=== PATIENT | male | born 1975 | race Two or more races ===

== ENCOUNTER 2021-09-24 09:32 | Inpatient (IN) | payer OTHER ==
[2021-09-24 10:51] VITALS: BMI 20.5
[2021-09-24] MEDS ORDERED: MAG HYDROX/AL HYDROX/SIMETH 30 ML UNIT-DOSE CUP PO PRN (11:45)
[2021-09-24] MEDS ORDERED: MAGNESIUM HYDROX 2400MG/30ML ORAL SUSPENSION 30 ML CUP PO PRN (11:45)
[2021-09-24] MEDS ORDERED: methaDONE HCL 10 MG TABLET (FOR DETOX USE ONLY) PO ONE ×2 (11:45→18:49)
[2021-09-24] MEDS ORDERED: BENZOCAINE/MENTHOL (CHLORASEPTIC ) LOZENGE MM PRN (11:45)
[2021-09-24] MEDS ORDERED: IBUPROFEN 400 MG TABLET (FP) PO PRN (11:45)
[2021-09-24] MEDS ORDERED: chlordiazePOXIDE HCL 25 MG CAPSULE PO PRN (11:45)
[2021-09-24] MEDS ORDERED: LOPERAMIDE HCL 2 MG CAPSULE PO PRN (11:45)
[2021-09-24] MEDS ORDERED: IBUPROFEN 600 MG TABLET (FP) PO PRN (11:45)
[2021-09-24] MEDS ORDERED: MAGNESIUM CITRATE 300 ML BOTTLE PO PRN (11:45)
[2021-09-24] MEDS ORDERED: DICYCLOMINE HCL 10 MG CAPSULE PO PRN (11:45)
[2021-09-24] MEDS ORDERED: ONDANSETRON *ODT* 4 MG TABLET SL PRN (11:45)
[2021-09-24] MEDS ORDERED: ACETAMINOPHEN 325 MG TABLET (FP) PO PRN ×2 (11:45)
[2021-09-24] MEDS ORDERED: BISMUTH SUBSALICYLATE 262 MG/15 ML BTL PO PRN (11:45)
[2021-09-24] MEDS ORDERED: NICOTINE 10 MG CARTRIDGE (INHALER) IH PRN (11:45)
[2021-09-24] MEDS: cloNIDine HCL 0.1 MG TABLET PO PRN ×2 (12:19→22:56)
[2021-09-24] MEDS: PRENATAL VITAMINS W/ FOLIC ACID TABLET (FP) PO SCH (12:23)
[2021-09-24] MEDS: NICOTINE 21 MG/24 HOURS TOPICAL PATCH TD SCH (12:23)
[2021-09-24] MEDS: hydrOXYzine PAMOATE 25 MG CAPSULE (FP) PO SCH ×2 (14:12→18:13)
[2021-09-24 16:37] LABS: HEMOGLOBIN 11.3 GM/dL (11.7-16.9); MCH 27.9 pg (25.7-33.7); MCHC 33.2 g/dl (32.0-35.9); MEAN CELL VOLUME 84.1 fl (80-96); MEAN PLT VOLUME 8.1 fl (7.5-11.1); PLATELET COUNT 275 10^3/uL (134-434); RBC 4.05 M/mm3 (4.00-5.60); RDW 16.1 % (11.9-15.9); WHITE BLOOD COUNT 5.8 K/mm3 (4.0-10.0)
[2021-09-24 16:45] LABS: ALBUMIN 3.2 g/dl (3.4-5.0)
[2021-09-24 16:46] LABS: CALCIUM 8.3 mg/dL (8.5-10.1)
[2021-09-24 16:47] LABS: BLOOD UREA NITROGEN 13.8 mg/dL (7-18)
[2021-09-24 16:49] LABS: CREATININE 0.7 mg/dL (0.55-1.3)
[2021-09-24 16:51] LABS: BILIRUBIN,TOTAL 0.3 mg/dL (0.2-1); TOT PROT 6.1 g/dl (6.4-8.2)
[2021-09-24] MEDS: chlordiazePOXIDE HCL 25 MG CAPSULE PO SCH ×2 (18:13→22:56)
[2021-09-24] MEDS: THIAMINE HCL 100 MG TABLET (FP) PO SCH (22:56)
[2021-09-24] MEDS: MELATONIN 5 MG TABLETS PO SCH (22:56)
[2021-09-24] MEDS: hydrOXYzine PAMOATE 25 MG CAPSULE (FP) PO PRN (22:56)
[2021-09-24] MEDS: METHOCARBAMOL 500 MG TABLET PO PRN (22:56)
[2021-09-25] MEDS: chlordiazePOXIDE HCL 25 MG CAPSULE PO SCH ×4 (07:07→22:21)
[2021-09-25] MEDS: METHOCARBAMOL 500 MG TABLET PO PRN ×2 (07:08→22:21)
[2021-09-25] MEDS: cloNIDine HCL 0.1 MG TABLET PO PRN ×2 (07:08→22:22)
[2021-09-25] MEDS: hydrOXYzine PAMOATE 25 MG CAPSULE (FP) PO PRN (07:08)
[2021-09-25] MEDS: PRENATAL VITAMINS W/ FOLIC ACID TABLET (FP) PO SCH (10:40)
[2021-09-25] MEDS: NICOTINE 21 MG/24 HOURS TOPICAL PATCH TD SCH (10:40)
[2021-09-25] MEDS: MELATONIN 5 MG TABLETS PO SCH (22:21)
[2021-09-25] MEDS: QUEtiapine FUMARATE 200 MG TABLET PO SCH (22:21)
[2021-09-25] MEDS: THIAMINE HCL 100 MG TABLET (FP) PO SCH (22:22)
[2021-09-25] MEDS ORDERED: cloNIDine HCL 0.1 MG TABLET PO ONE (23:20)
[2021-09-26] MEDS: chlordiazePOXIDE HCL 25 MG CAPSULE PO SCH ×5 (05:07→23:15)
[2021-09-26] MEDS: cloNIDine HCL 0.1 MG TABLET PO PRN ×2 (05:08→23:04)
[2021-09-26] MEDS: hydrOXYzine PAMOATE 25 MG CAPSULE (FP) PO PRN ×2 (05:08→23:04)
[2021-09-26] MEDS: METHOCARBAMOL 500 MG TABLET PO PRN ×2 (05:09→23:04)
[2021-09-26] MEDS ORDERED: methaDONE HCL 10 MG TABLET (FOR DETOX USE ONLY) PO ONE ×2 (10:00)
[2021-09-26] MEDS ORDERED: cloNIDine HCL 0.1 MG TABLET PO ONE (10:05)
[2021-09-26] MEDS: NICOTINE 21 MG/24 HOURS TOPICAL PATCH TD SCH (10:33)
[2021-09-26] MEDS: PRENATAL VITAMINS W/ FOLIC ACID TABLET (FP) PO SCH (10:33)
[2021-09-26] MEDS: QUEtiapine FUMARATE 100 MG TABLET (FP) PO SCH (10:34)
[2021-09-26] MEDS: QUEtiapine FUMARATE 200 MG TABLET PO SCH (21:48)
[2021-09-26] MEDS: MELATONIN 5 MG TABLETS PO SCH (23:04)
[2021-09-26] MEDS: THIAMINE HCL 100 MG TABLET (FP) PO SCH (23:25)
[2021-09-27] MEDS ORDERED: chlordiazePOXIDE HCL 10 MG CAPSULE PO PRN
[2021-09-27 00:27] VITALS: RESP 18
[2021-09-27] MEDS: chlordiazePOXIDE HCL 10 MG CAPSULE PO SCH ×2 (07:09→10:23)
[2021-09-27 08:58] VITALS: BP 146/114; PULSE 90; TEMP 97.2
[2021-09-27] MEDS: hydrOXYzine PAMOATE 25 MG CAPSULE (FP) PO PRN (09:00)
[2021-09-27] MEDS: METHOCARBAMOL 500 MG TABLET PO PRN (09:00)
[2021-09-27] MEDS: QUEtiapine FUMARATE 100 MG TABLET (FP) PO SCH (09:00)
[2021-09-27] MEDS: NICOTINE 21 MG/24 HOURS TOPICAL PATCH TD SCH (09:01)
[2021-09-27] MEDS: PRENATAL VITAMINS W/ FOLIC ACID TABLET (FP) PO SCH (09:03)
[2021-09-27] MEDS ORDERED: cloNIDine HCL 0.1 MG TABLET PO ONE (09:45)
[2021-09-28] MEDS ORDERED: chlordiazePOXIDE HCL 10 MG CAPSULE PO SCH (05:00)
[2021-09-28] MEDS ORDERED: methaDONE HCL 10 MG TABLET (FOR DETOX USE ONLY) PO ONE (10:00)
[2021-09-29] MEDS ORDERED: chlordiazePOXIDE HCL 10 MG CAPSULE PO ONE (05:00)
== END 2021-09-27 10:58 | disposition left against medical advice (07) | DRG 770 ==
LOC: YASAS 09:32 → Y3N 11:32
PROVIDERS: ADMIT Allergy & Immunology; ATTEND Surgery
PROC: HZ2ZZZZ Detoxification Services for Substance Abuse Treatment (ICD-10-PCS; principal; 2021-09-24)
DX: F11.23 Opioid dependence with withdrawal (principal); F10.230 Alcohol dependence with withdrawal, uncomplicated; F14.20 Cocaine dependence, uncomplicated; F17.210 Nicotine dependence, cigarettes, uncomplicated; F20.0 Paranoid schizophrenia; I10 Essential (primary) hypertension; Z59.00 Homelessness unspecified; Z56.0 Unemployment, unspecified
CPT/HCPCS: 36415; 71046-TC-FY; 80053; 85027; 86780; 93005; 93010; C9803-CS; J0735; U0003; U0005

== ENCOUNTER 2022-01-15 10:33 | Inpatient (IN) | payer OTHER ==
[2022-01-15 11:55] VITALS: BMI 19.2
[2022-01-15] MEDS ORDERED: NALOXONE HCL (KLOXXADO) 8 MG SPRAY NS PRN (12:07)
[2022-01-15] MEDS ORDERED: NICOTINE 10 MG CARTRIDGE (INHALER) IH PRN (12:07)
[2022-01-15] MEDS ORDERED: MAGNESIUM HYDROX 2400MG/30ML ORAL SUSPENSION 30 ML CUP PO PRN (12:07)
[2022-01-15] MEDS ORDERED: ACETAMINOPHEN 325 MG TABLET (FP) PO PRN ×2 (12:07)
[2022-01-15] MEDS ORDERED: IBUPROFEN 400 MG TABLET (FP) PO PRN (12:07)
[2022-01-15] MEDS ORDERED: BISMUTH SUBSALICYLATE 262 MG/15 ML BTL PO PRN (12:07)
[2022-01-15] MEDS ORDERED: diazePAM 5 MG TABLET PO PRN (12:07)
[2022-01-15] MEDS ORDERED: POLYETHYLENE GLYCOL (HEALTHYLAX) 3350 17 GM PACKET PO PRN (12:07)
[2022-01-15] MEDS ORDERED: BUPRENORPHINE HCL 150 MCG, BUPRENORPHINE HCL 75 MCG BC ONE (12:07)
[2022-01-15] MEDS ORDERED: MAG HYDROX/AL HYDROX/SIMETH 30 ML UNIT-DOSE CUP PO PRN (12:07)
[2022-01-15] MEDS ORDERED: LOPERAMIDE HCL 2 MG CAPSULE PO PRN (12:07)
[2022-01-15] MEDS ORDERED: BUPRENORPHINE HCL 150 MCG, BUPRENORPHINE HCL 75 MCG BC PRN (12:07)
[2022-01-15] MEDS ORDERED: chlordiazePOXIDE HCL 25 MG CAPSULE PO PRN (12:07)
[2022-01-15] MEDS ORDERED: BENZOCAINE/MENTHOL (CHLORASEPTIC ) LOZENGE MM PRN (12:07)
[2022-01-15] MEDS ORDERED: DICYCLOMINE HCL 10 MG CAPSULE PO PRN (12:07)
[2022-01-15] MEDS ORDERED: cloNIDine HCL 0.1 MG TABLET PO ONE (12:07)
[2022-01-15] MEDS ORDERED: BUPRENORPHINE HCL 150 MCG FILM BC ONE (14:29)
[2022-01-15] MEDS ORDERED: BUPRENORPHINE HCL 75 MCG FILM BC ONE (14:30)
[2022-01-15] MEDS ORDERED: cloNIDine HCL 0.1 MG TABLET ONE (14:31)
[2022-01-15] MEDS: PRENATAL VITAMINS W/ FOLIC ACID TABLET (FP) PO SCH (15:27)
[2022-01-15] MEDS: TOLNAFTATE 1% CREAM 15 GM TUBE TP SCH ×2 (15:27→23:31)
[2022-01-15] MEDS: chlordiazePOXIDE HCL 25 MG CAPSULE PO SCH ×2 (17:51→23:30)
[2022-01-15] MEDS: cloNIDine HCL 0.1 MG TABLET PO PRN (23:30)
[2022-01-15] MEDS: METHOCARBAMOL 500 MG TABLET PO PRN (23:30)
[2022-01-15] MEDS: THIAMINE HCL 100 MG TABLET (FP) PO SCH (23:31)
[2022-01-15] MEDS: MELATONIN 5 MG TABLETS PO SCH (23:31)
[2022-01-16] MEDS ORDERED: BUPRENORPHINE HCL 150 MCG, BUPRENORPHINE HCL 75 MCG BC PRN
[2022-01-16] MEDS ORDERED: BUPRENORPHINE HCL 150 MCG, BUPRENORPHINE HCL 75 MCG BC SCH (06:00)
[2022-01-16] MEDS: chlordiazePOXIDE HCL 25 MG CAPSULE PO SCH ×3 (06:03→17:53)
[2022-01-16] MEDS: cloNIDine HCL 0.1 MG TABLET PO PRN ×4 (06:05→21:43)
[2022-01-16] MEDS: METHOCARBAMOL 500 MG TABLET PO PRN ×3 (06:06→21:40)
[2022-01-16 10:31] LABS: HEMATOCRIT 37.6 % (35.4-49); HEMOGLOBIN 12.1 GM/dL (11.7-16.9); MCH 28.2 pg (25.7-33.7); MCHC 32.1 g/dl (32.0-35.9); MEAN CELL VOLUME 87.9 fl (80-96); MEAN PLT VOLUME 7.8 fl (7.5-11.1); PLATELET COUNT 386 10^3/uL (134-434); RBC 4.28 M/mm3 (4.00-5.60); RDW 14.5 % (11.9-15.9); WHITE BLOOD COUNT 5.4 K/mm3 (4.0-10.0)
[2022-01-16 11:10] LABS: ALBUMIN 3.3 g/dl (3.4-5.0); BLOOD UREA NITROGEN 16.2 mg/dL (7-18)
[2022-01-16 11:13] LABS: CREATININE 0.7 mg/dL (0.55-1.3)
[2022-01-16 11:15] LABS: BILIRUBIN,TOTAL 0.6 mg/dL (0.2-1); TOT PROT 6.5 g/dl (6.4-8.2)
[2022-01-16] MEDS: TOLNAFTATE 1% CREAM 15 GM TUBE TP SCH ×2 (11:15→21:43)
[2022-01-16] MEDS: PRENATAL VITAMINS W/ FOLIC ACID TABLET (FP) PO SCH (11:16)
[2022-01-16] MEDS ORDERED: cloNIDine HCL 0.1 MG TABLET PO ONE (13:02)
[2022-01-16] MEDS: ONDANSETRON *ODT* 4 MG TABLET SL PRN (13:26)
[2022-01-16] MEDS ORDERED: TRIMETHOBENZAMIDE HCL 200MG/2ML INJ IM PRN (15:03)
[2022-01-16] MEDS: IBUPROFEN 600 MG TABLET (FP) PO PRN ×2 (15:26→21:41)
[2022-01-16] MEDS: amLODIPine BESYLATE 5 MG TABLET (FP) PO SCH (15:51)
[2022-01-16] MEDS ORDERED: methaDONE HCL 10 MG TABLET (FOR DETOX USE ONLY) PO ONE (17:29)
[2022-01-16] MEDS: LACTULOSE 20 GM/30 ML UDC (FOR ORAL USE ONLY) PO SCH ×2 (17:54→21:45)
[2022-01-16] MEDS: hydrOXYzine PAMOATE 25 MG CAPSULE (FP) PO PRN (21:40)
[2022-01-16] MEDS: THIAMINE HCL 100 MG TABLET (FP) PO SCH (21:40)
[2022-01-16] MEDS: MELATONIN 5 MG TABLETS PO SCH (21:44)
[2022-01-17] MEDS: chlordiazePOXIDE HCL 25 MG CAPSULE PO SCH ×4 (05:32→23:09)
[2022-01-17] MEDS: ONDANSETRON *ODT* 4 MG TABLET SL PRN (05:33)
[2022-01-17] MEDS: METHOCARBAMOL 500 MG TABLET PO PRN (05:33)
[2022-01-17] MEDS: hydrOXYzine PAMOATE 25 MG CAPSULE (FP) PO PRN (05:33)
[2022-01-17] MEDS: cloNIDine HCL 0.1 MG TABLET PO PRN (05:33)
[2022-01-17] MEDS: IBUPROFEN 600 MG TABLET (FP) PO PRN (05:33)
[2022-01-17] MEDS ORDERED: BUPRENORPHINE HCL 450 MCG FILM BC SCH (06:00)
[2022-01-17] MEDS: HYDROCHLOROTHIAZIDE 25 MG TABLET (FP) PO SCH (09:24)
[2022-01-17] MEDS: amLODIPine BESYLATE 5 MG TABLET (FP) PO SCH (09:24)
[2022-01-17] MEDS: PRENATAL VITAMINS W/ FOLIC ACID TABLET (FP) PO SCH (09:24)
[2022-01-17] MEDS: TOLNAFTATE 1% CREAM 15 GM TUBE TP SCH ×2 (10:51→23:09)
[2022-01-17] MEDS: LACTULOSE 20 GM/30 ML UDC (FOR ORAL USE ONLY) PO SCH ×4 (10:51→21:32)
[2022-01-17] MEDS: MELATONIN 5 MG TABLETS PO SCH (21:06)
[2022-01-17] MEDS: THIAMINE HCL 100 MG TABLET (FP) PO SCH (21:06)
[2022-01-17] MEDS: QUEtiapine FUMARATE 200 MG TABLET PO SCH (21:06)
[2022-01-18] MEDS ORDERED: chlordiazePOXIDE HCL 10 MG CAPSULE PO PRN
[2022-01-18] MEDS: chlordiazePOXIDE HCL 10 MG CAPSULE PO SCH ×4 (05:51→22:43)
[2022-01-18] MEDS ORDERED: BUPRENORPHINE/NALOXONE 4 MG/1 MG FILM PACKET SL SCH (06:00)
[2022-01-18] MEDS: LACTULOSE 20 GM/30 ML UDC (FOR ORAL USE ONLY) PO SCH ×4 (09:29→23:47)
[2022-01-18] MEDS: HYDROCHLOROTHIAZIDE 25 MG TABLET (FP) PO SCH (09:30)
[2022-01-18] MEDS: amLODIPine BESYLATE 5 MG TABLET (FP) PO SCH (09:30)
[2022-01-18] MEDS: PRENATAL VITAMINS W/ FOLIC ACID TABLET (FP) PO SCH (09:31)
[2022-01-18] MEDS: TOLNAFTATE 1% CREAM 15 GM TUBE TP SCH ×2 (09:31→22:43)
[2022-01-18] MEDS ORDERED: methaDONE HCL 10 MG TABLET (FOR DETOX USE ONLY) PO ONE (10:00)
[2022-01-18] MEDS: METHOCARBAMOL 500 MG TABLET PO PRN (10:57)
[2022-01-18] MEDS: IBUPROFEN 600 MG TABLET (FP) PO PRN (13:13)
[2022-01-18] MEDS: cloNIDine HCL 0.1 MG TABLET PO PRN (13:19)
[2022-01-18] MEDS: hydrOXYzine PAMOATE 25 MG CAPSULE (FP) PO PRN (14:48)
[2022-01-18] MEDS: MELATONIN 5 MG TABLETS PO SCH (22:43)
[2022-01-18] MEDS: QUEtiapine FUMARATE 200 MG TABLET PO SCH (22:43)
[2022-01-18] MEDS: THIAMINE HCL 100 MG TABLET (FP) PO SCH (22:43)
[2022-01-19] MEDS ORDERED: BUPRENORPHINE/NALOXONE 8 MG/2 MG FILM PACKET SL ONE (06:00)
[2022-01-19] MEDS: chlordiazePOXIDE HCL 10 MG CAPSULE PO SCH ×2 (06:21→17:52)
[2022-01-19] MEDS: HYDROCHLOROTHIAZIDE 25 MG TABLET (FP) PO SCH (10:36)
[2022-01-19] MEDS: LACTULOSE 20 GM/30 ML UDC (FOR ORAL USE ONLY) PO SCH ×4 (10:36→22:01)
[2022-01-19] MEDS: amLODIPine BESYLATE 5 MG TABLET (FP) PO SCH (10:36)
[2022-01-19] MEDS: PRENATAL VITAMINS W/ FOLIC ACID TABLET (FP) PO SCH (10:36)
[2022-01-19] MEDS: TOLNAFTATE 1% CREAM 15 GM TUBE TP SCH ×2 (10:39→22:01)
[2022-01-19] MEDS: hydrOXYzine PAMOATE 25 MG CAPSULE (FP) PO PRN (17:52)
[2022-01-19] MEDS: MELATONIN 5 MG TABLETS PO SCH (22:01)
[2022-01-19] MEDS: QUEtiapine FUMARATE 200 MG TABLET PO SCH (22:01)
[2022-01-19] MEDS: THIAMINE HCL 100 MG TABLET (FP) PO SCH (22:01)
[2022-01-20] MEDS ORDERED: chlordiazePOXIDE HCL 10 MG CAPSULE PO ONE (05:00)
[2022-01-20 06:18] VITALS: RESP 18
[2022-01-20] MEDS ORDERED: methaDONE HCL 10 MG TABLET (FOR DETOX USE ONLY) PO ONE (10:00)
[2022-01-20] MEDS: HYDROCHLOROTHIAZIDE 25 MG TABLET (FP) PO SCH (10:53)
[2022-01-20] MEDS: amLODIPine BESYLATE 5 MG TABLET (FP) PO SCH (10:53)
[2022-01-20] MEDS: PRENATAL VITAMINS W/ FOLIC ACID TABLET (FP) PO SCH (10:54)
[2022-01-20] MEDS: LACTULOSE 20 GM/30 ML UDC (FOR ORAL USE ONLY) PO SCH ×4 (10:54→22:41)
[2022-01-20] MEDS: TOLNAFTATE 1% CREAM 15 GM TUBE TP SCH ×2 (10:54→22:40)
[2022-01-20] MEDS ORDERED: cloNIDine HCL 0.1 MG TABLET PO ONE (18:32)
[2022-01-20] MEDS: MELATONIN 5 MG TABLETS PO SCH (22:40)
[2022-01-20] MEDS: THIAMINE HCL 100 MG TABLET (FP) PO SCH (22:40)
[2022-01-20] MEDS: QUEtiapine FUMARATE 200 MG TABLET PO SCH (22:41)
[2022-01-20] MEDS: hydrOXYzine PAMOATE 25 MG CAPSULE (FP) PO PRN (22:41)
[2022-01-20] MEDS: METHOCARBAMOL 500 MG TABLET PO PRN (22:41)
[2022-01-21 08:55] VITALS: BP 143/95; PULSE 113; TEMP 98.7
[2022-01-21] MEDS: PRENATAL VITAMINS W/ FOLIC ACID TABLET (FP) PO SCH (10:45)
[2022-01-21] MEDS: amLODIPine BESYLATE 5 MG TABLET (FP) PO SCH (10:45)
[2022-01-21] MEDS: HYDROCHLOROTHIAZIDE 25 MG TABLET (FP) PO SCH (10:45)
[2022-01-21] MEDS: LACTULOSE 20 GM/30 ML UDC (FOR ORAL USE ONLY) PO SCH ×2 (10:45→13:20)
[2022-01-21] MEDS: TOLNAFTATE 1% CREAM 15 GM TUBE TP SCH (10:45)
== END 2022-01-21 15:21 | disposition other institution (70) | DRG 773 ==
LOC: YASAS 10:33 → Y3N 13:14
PROVIDERS: ADMIT Allergy & Immunology; ATTEND Surgery
PROC: HZ2ZZZZ Detoxification Services for Substance Abuse Treatment (ICD-10-PCS; principal; 2022-01-15)
DX: F11.23 Opioid dependence with withdrawal (principal); F10.230 Alcohol dependence with withdrawal, uncomplicated; F14.20 Cocaine dependence, uncomplicated; F20.0 Paranoid schizophrenia; F19.282 Other psychoactive substance dependence with psychoactive substance-induced sleep disorder; I10 Essential (primary) hypertension; R79.89 Other specified abnormal findings of blood chemistry; R76.11 Nonspecific reaction to tuberculin skin test without active tuberculosis; Z20.822 Contact with and (suspected) exposure to COVID-19; Z56.0 Unemployment, unspecified; Z59.00 Homelessness unspecified
CPT/HCPCS: 36415; 71046-TC-FY; 80053; 82140; 85027; 86780; C9803-CS; Q0162; U0003; U0005

== ENCOUNTER 2022-04-28 10:03 | Inpatient (IN) | payer OTHER ==
[2022-04-28 11:14] VITALS: BMI 19.8
[2022-04-28] MEDS ORDERED: BENZONATATE 200 MG CAPSULE PO PRN (11:34)
[2022-04-28] MEDS ORDERED: POLYETHYLENE GLYCOL (HEALTHYLAX) 3350 17 GM PACKET PO PRN (11:34)
[2022-04-28] MEDS ORDERED: ONDANSETRON *ODT* 4 MG TABLET SL PRN (11:34)
[2022-04-28] MEDS ORDERED: guaiFENesin 600 MG TABLET.ER (FP) PO PRN (11:34)
[2022-04-28] MEDS ORDERED: BISMUTH SUBSALICYLATE 524 MG/30 ML PO PRN (11:34)
[2022-04-28] MEDS ORDERED: BENZOCAINE/MENTHOL (CHLORASEPTIC ) LOZENGE MM PRN (11:34)
[2022-04-28] MEDS ORDERED: ACETAMINOPHEN 325 MG TABLET (FP) PO PRN (11:34)
[2022-04-28] MEDS ORDERED: DICYCLOMINE HCL 10 MG CAPSULE PO PRN (11:34)
[2022-04-28] MEDS ORDERED: IBUPROFEN 400 MG TABLET (FP) PO PRN (11:34)
[2022-04-28] MEDS ORDERED: NICOTINE 21 MG/24 HOURS TOPICAL PATCH TD PRN (11:34)
[2022-04-28] MEDS ORDERED: LOPERAMIDE HCL 2 MG CAPSULE PO PRN (11:34)
[2022-04-28] MEDS ORDERED: NICOTINE POLACRILEX 4 MG GUM BUC PRN (11:34)
[2022-04-28] MEDS ORDERED: IBUPROFEN 600 MG TABLET (FP) PO PRN (11:34)
[2022-04-28] MEDS ORDERED: MAGNESIUM HYDROX 2400MG/30ML ORAL SUSPENSION 30 ML CUP PO PRN (11:34)
[2022-04-28] MEDS ORDERED: NICOTINE 10 MG CARTRIDGE (INHALER) IH PRN (11:34)
[2022-04-28] MEDS ORDERED: MAG HYDROX/AL HYDROX/SIMETH 30 ML UNIT-DOSE CUP PO PRN (11:34)
[2022-04-28] MEDS ORDERED: NALOXONE HCL 0.4 MG/ML VIAL IM PRN (11:34)
[2022-04-28] MEDS ORDERED: NALOXONE HCL (KLOXXADO) 8 MG SPRAY NS PRN (11:34)
[2022-04-28] MEDS ORDERED: METHOCARBAMOL 500 MG TABLET PO PRN (11:34)
[2022-04-28] MEDS ORDERED: hydrOXYzine PAMOATE 25 MG CAPSULE (FP) PO PRN (11:34)
[2022-04-28 14:46] LABS: HEMATOCRIT 33.6 % (35.4-49); MCH 27.8 pg (25.7-33.7); MCHC 32.9 g/dl (32.0-35.9); MEAN CELL VOLUME 84.6 fl (80-96); MEAN PLT VOLUME 8.1 fl (7.5-11.1); PLATELET COUNT 333 10^3/uL (134-434); RBC 3.97 M/mm3 (4.00-5.60); RDW 15.5 % (11.9-15.9); WHITE BLOOD COUNT 6.2 K/mm3 (4.0-10.0)
[2022-04-28 15:01] LABS: ALBUMIN 3.4 g/dl (3.4-5.0); BLOOD UREA NITROGEN 21.4 mg/dL (7-18); CALCIUM 8.8 mg/dL (8.5-10.1)
[2022-04-28 15:04] LABS: CREATININE 0.9 mg/dL (0.55-1.3)
[2022-04-28 15:06] LABS: BILIRUBIN,TOTAL 1.2 mg/dL (0.2-1); TOT PROT 7.2 g/dl (6.4-8.2)
[2022-04-28] MEDS: MELATONIN 5 MG TABLETS PO SCH (22:47)
[2022-04-28] MEDS: THIAMINE HCL 100 MG TABLET (FP) PO SCH (22:47)
[2022-04-28] MEDS: cloNIDine HCL 0.1 MG TABLET PO PRN (22:48)
[2022-04-29] MEDS ORDERED: cloNIDine HCL 0.1 MG TABLET PO ONE (06:04)
[2022-04-29 06:08] VITALS: RESP 18
[2022-04-29] MEDS ORDERED: methaDONE HCL 10 MG TABLET (FOR DETOX USE ONLY) PO ONE (10:00)
[2022-04-29] MEDS: PRENATAL VITAMINS W/ FOLIC ACID TABLET (FP) PO SCH (10:40)
[2022-04-29] MEDS ORDERED: QUEtiapine FUMARATE 100 MG TABLET (FP) PO SCH (22:00)
[2022-04-29] MEDS: QUEtiapine FUMARATE 50 MG TABLET PO SCH (22:29)
[2022-04-29] MEDS: MELATONIN 5 MG TABLETS PO SCH (22:29)
[2022-04-29] MEDS: THIAMINE HCL 100 MG TABLET (FP) PO SCH (22:29)
[2022-04-30] MEDS: cloNIDine HCL 0.1 MG TABLET PO PRN (08:06)
[2022-04-30] MEDS: PRENATAL VITAMINS W/ FOLIC ACID TABLET (FP) PO SCH (09:29)
[2022-04-30] MEDS ORDERED: methaDONE HCL 10 MG TABLET (FOR DETOX USE ONLY) PO ONE (10:00)
[2022-04-30 10:13] VITALS: TEMP 97.1
[2022-04-30 11:39] VITALS: BP 161/99; PULSE 72
[2022-04-30] MEDS: amLODIPine BESYLATE 5 MG TABLET (FP) PO SCH ×2 (11:52→12:04)
[2022-05-01] MEDS: THIAMINE HCL 100 MG TABLET (FP) PO SCH (00:10)
[2022-05-01] MEDS: MELATONIN 5 MG TABLETS PO SCH (00:10)
[2022-05-01] MEDS: QUEtiapine FUMARATE 50 MG TABLET PO SCH (00:10)
[2022-05-01] MEDS ORDERED: methaDONE HCL 10 MG TABLET (FOR DETOX USE ONLY) PO ONE (10:00)
[2022-05-02] MEDS ORDERED: methaDONE HCL 10 MG TABLET (FOR DETOX USE ONLY) PO ONE (10:00)
== END 2022-05-01 02:34 | disposition short-term general hospital (02) | DRG 773 ==
LOC: YASAS 10:03 → Y6N 12:41
PROVIDERS: ADMIT Allergy & Immunology; ATTEND Surgery
PROC: HZ2ZZZZ Detoxification Services for Substance Abuse Treatment (ICD-10-PCS; principal; 2022-04-28)
DX: F11.23 Opioid dependence with withdrawal (principal); F17.210 Nicotine dependence, cigarettes, uncomplicated; F20.9 Schizophrenia, unspecified; F19.282 Other psychoactive substance dependence with psychoactive substance-induced sleep disorder; F19.24 Other psychoactive substance dependence with psychoactive substance-induced mood disorder; I10 Essential (primary) hypertension; R76.11 Nonspecific reaction to tuberculin skin test without active tuberculosis; R79.89 Other specified abnormal findings of blood chemistry; Z28.310 Unvaccinated for COVID-19; Z28.21 Immunization not carried out because of patient refusal; Z56.0 Unemployment, unspecified; Z59.00 Homelessness unspecified
CPT/HCPCS: 36415; 80053; 82140; 82962; 85027; 86780; 87811; C9803-CS; Q0162; U0003; U0005

== ENCOUNTER 2022-04-30 12:24 | Emergency (ER) | payer OTHER ==
[2022-04-30 12:50] VITALS: BP 196/123; PULSE 70; RESP 20; TEMP 98; BMI 19.5
[2022-04-30] MEDS ORDERED: ACETAMINOPHEN 325 MG TABLET (FP) PO ONE (13:36)
[2022-04-30] MEDS ORDERED: amLODIPine BESYLATE 10 MG TABLET (FP) PO ONE (13:37)
[2022-04-30] MEDS ORDERED: amLODIPine BESYLATE 10 MG TABLET (FP) ONE (13:45)
[2022-04-30] MEDS ORDERED: ACETAMINOPHEN 325 MG TABLET (FP) ONE (13:45)
[2022-04-30 14:00] LABS: HEMATOCRIT 42.5 % (35.4-49); HEMOGLOBIN 13.8 GM/dL (11.7-16.9); MCH 27.3 pg (25.7-33.7); MCHC 32.5 g/dl (32.0-35.9); MEAN CELL VOLUME 83.9 fl (80-96); MEAN PLT VOLUME 7.7 fl (7.5-11.1); PLATELET COUNT 427 10^3/uL (134-434); RBC 5.07 M/mm3 (4.00-5.60); RDW 16.1 % (11.9-15.9); WHITE BLOOD COUNT 21.2 K/mm3 (4.0-10.0)
[2022-04-30 14:18] LABS: BLOOD UREA NITROGEN 14.6 mg/dL (7-18); CALCIUM 9.1 mg/dL (8.5-10.1); MAGNESIUM 2.1 mg/dL (1.8-2.4)
[2022-04-30 14:19] LABS: ALBUMIN 3.8 g/dl (3.4-5.0)
[2022-04-30 14:21] LABS: CREATININE 0.8 mg/dL (0.55-1.3)
[2022-04-30 14:23] LABS: BILIRUBIN,TOTAL 0.5 mg/dL (0.2-1); TOT PROT 8.5 g/dl (6.4-8.2)
[2022-04-30 15:17] LABS: ANISOCYTOSIS 0; MACROCYTOSIS 0
== END 2022-04-30 16:40 | disposition left against medical advice (07) ==
LOC: JER 12:24
DX: R10.13 Epigastric pain (principal); R11.2 Nausea with vomiting, unspecified; I10 Essential (primary) hypertension
CPT/HCPCS: 36415; 80053; 82550; 83690; 83735; 84484; 85025; 93005; 93010; 99284-25

== ENCOUNTER 2023-03-12 09:56 | Inpatient (IN) | payer OTHER ==
[2023-03-12 10:37] VITALS: BMI 19.9
[2023-03-12] MEDS ORDERED: ACETAMINOPHEN 325 MG TABLET (FP) PO PRN (12:19)
[2023-03-12] MEDS ORDERED: guaiFENesin 600 MG TABLET.ER (FP) PO PRN (12:19)
[2023-03-12] MEDS ORDERED: NALOXONE HCL 0.4 MG/ML VIAL IM PRN (12:19)
[2023-03-12] MEDS ORDERED: BISMUTH SUBSALICYLATE 262 MG/15 ML BTL PO PRN (12:19)
[2023-03-12] MEDS ORDERED: LOPERAMIDE HCL 2 MG CAPSULE PO PRN (12:19)
[2023-03-12] MEDS ORDERED: BENZONATATE 200 MG CAPSULE PO PRN (12:19)
[2023-03-12] MEDS ORDERED: BENZOCAINE/MENTHOL (CHLORASEPTIC ) LOZENGE MM PRN (12:19)
[2023-03-12] MEDS ORDERED: ONDANSETRON *ODT* 4 MG TABLET SL PRN (12:19)
[2023-03-12] MEDS ORDERED: NALOXONE HCL (KLOXXADO) 8 MG SPRAY NS PRN (12:19)
[2023-03-12] MEDS ORDERED: MAGNESIUM HYDROX 2400MG/30ML ORAL SUSPENSION 30 ML CUP PO PRN (12:19)
[2023-03-12] MEDS ORDERED: hydrOXYzine PAMOATE 25 MG CAPSULE (FP) PO PRN (12:19)
[2023-03-12] MEDS ORDERED: NICOTINE POLACRILEX 2 MG GUM BUC PRN (12:19)
[2023-03-12] MEDS ORDERED: POLYETHYLENE GLYCOL (HEALTHYLAX) 3350 17 GM PACKET PO PRN (12:19)
[2023-03-12] MEDS ORDERED: IBUPROFEN 600 MG TABLET (FP) PO PRN (12:19)
[2023-03-12] MEDS ORDERED: DICYCLOMINE HCL 10 MG CAPSULE PO PRN (12:19)
[2023-03-12] MEDS ORDERED: IBUPROFEN 400 MG TABLET (FP) PO PRN (12:19)
[2023-03-12] MEDS ORDERED: MAG HYDROX/AL HYDROX/SIMETH 30 ML UNIT-DOSE CUP PO PRN (12:19)
[2023-03-12 20:41] VITALS: RESP 18
[2023-03-12] MEDS ORDERED: THIAMINE HCL 100 MG TABLET (FP) PO SCH (22:00)
[2023-03-12] MEDS ORDERED: MELATONIN 5 MG TABLETS PO SCH (22:00)
[2023-03-12] MEDS: METHOCARBAMOL 500 MG TABLET PO PRN (22:38)
[2023-03-13] MEDS ORDERED: methaDONE HCL 10 MG TABLET (FOR DETOX USE ONLY) PO ONE (09:29)
[2023-03-13] MEDS ORDERED: cloNIDine HCL 0.1 MG TABLET PO PRN (09:29)
[2023-03-13] MEDS ORDERED: PRENATAL VITAMINS W/ FOLIC ACID TABLET (FP) PO SCH (10:00)
[2023-03-13] MEDS ORDERED: amLODIPine BESYLATE 5 MG TABLET (FP) PO SCH (10:00)
[2023-03-13] MEDS ORDERED: NICOTINE 21 MG/24 HOURS TOPICAL PATCH TD SCH (10:00)
[2023-03-13] MEDS: METHOCARBAMOL 500 MG TABLET PO PRN ×2 (10:41→17:09)
[2023-03-13 11:22] LABS: HEMATOCRIT 34.2 % (35.4-49); HEMOGLOBIN 10.8 GM/dL (11.7-16.9); MCH 26.7 pg (25.7-33.7); MCHC 31.7 g/dl (32.0-35.9); MEAN CELL VOLUME 84.2 fl (80-96); MEAN PLT VOLUME 7.9 fl (7.5-11.1); PLATELET COUNT 353 10^3/uL (134-434); RBC 4.05 M/mm3 (4.00-5.60); RDW 15.6 % (11.9-15.9); WHITE BLOOD COUNT 5.6 K/mm3 (4.0-10.0)
[2023-03-13 11:59] LABS: CHLORIDE 107 mmol/L (98-107); POTASSIUM 4.3 mmol/L (3.5-5.1); SODIUM 138 mmol/L (136-145)
[2023-03-13 12:06] LABS: ANION GAP 3 mmol/L (4-13); BLOOD UREA NITROGEN 24.6 mg/dL (7-18); CALCIUM 8.3 mg/dL (8.5-10.1); CO2 29 mmol/L (21-32); GLUCOSE,RANDOM 110 mg/dL (74-106)
[2023-03-13 12:07] LABS: ALBUMIN 2.9 g/dl (3.4-5.0)
[2023-03-13 12:09] LABS: SGPT/ALT 27 U/L (13-61)
[2023-03-13 12:10] LABS: CREATININE 0.5 mg/dL (0.55-1.3); SGOT/AST 27 U/L (15-37)
[2023-03-13 12:11] LABS: BILIRUBIN,TOTAL 0.4 mg/dL (0.2-1); TOT PROT 6.4 g/dl (6.4-8.2)
[2023-03-13 12:12] LABS: ALK PHOS 121 U/L (45-117)
[2023-03-13] MEDS ORDERED: diazePAM 5 MG TABLET PO PRN (20:13)
[2023-03-13 20:30] VITALS: BP 165/107; PULSE 80; TEMP 98.4
[2023-03-15] MEDS ORDERED: methaDONE HCL 10 MG TABLET (FOR DETOX USE ONLY) PO ONE (10:00)
[2023-03-17] MEDS ORDERED: methaDONE HCL 10 MG TABLET (FOR DETOX USE ONLY) PO ONE (10:00)
== END 2023-03-13 22:38 | disposition left against medical advice (07) | DRG 770 ==
LOC: YASAS 09:56 → Y3N 12:44
PROVIDERS: ADMIT Allergy & Immunology; ATTEND Allergy & Immunology
PROC: HZ2ZZZZ Detoxification Services for Substance Abuse Treatment (ICD-10-PCS; principal; 2023-03-12)
DX: F11.23 Opioid dependence with withdrawal (principal); F14.20 Cocaine dependence, uncomplicated; F15.20 Other stimulant dependence, uncomplicated; F17.210 Nicotine dependence, cigarettes, uncomplicated; F20.9 Schizophrenia, unspecified; I10 Essential (primary) hypertension; Z28.310 Unvaccinated for COVID-19; Z28.9 Immunization not carried out for unspecified reason; Z87.828 Personal history of other (healed) physical injury and trauma; Z56.0 Unemployment, unspecified; Z59.00 Homelessness unspecified
CPT/HCPCS: 36415; 71046-TC-FY; 80053; 80307; 85027; 86780; 87635; 87811

== ENCOUNTER 2023-08-13 20:09 | Inpatient (IN) | payer OTHER ==
[2023-08-13 20:47] VITALS: BMI 19.8
[2023-08-13] MEDS ORDERED: NALOXONE HCL 0.4 MG/ML VIAL IM PRN (22:06)
[2023-08-13] MEDS ORDERED: LOPERAMIDE HCL 2 MG CAPSULE PO PRN (22:06)
[2023-08-13] MEDS ORDERED: POLYETHYLENE GLYCOL (HEALTHYLAX) 3350 17 GM PACKET PO PRN (22:06)
[2023-08-13] MEDS ORDERED: DICYCLOMINE HCL 10 MG CAPSULE PO PRN (22:06)
[2023-08-13] MEDS ORDERED: MAGNESIUM HYDROX 2400MG/30ML ORAL SUSPENSION 30 ML CUP PO PRN (22:06)
[2023-08-13] MEDS ORDERED: NALOXONE (NARCAN) HCL 4 MG/0.1 ML SPRAY NS PRN (22:06)
[2023-08-13] MEDS ORDERED: BENZONATATE 200 MG CAPSULE PO PRN (22:06)
[2023-08-13] MEDS ORDERED: BISMUTH SUBSALICYLATE 524 MG/30 ML PO PRN (22:06)
[2023-08-13] MEDS ORDERED: guaiFENesin 600 MG TABLET.ER (FP) PO PRN (22:06)
[2023-08-13] MEDS ORDERED: ACETAMINOPHEN 325 MG TABLET (FP) PO PRN (22:06)
[2023-08-13] MEDS ORDERED: IBUPROFEN 600 MG TABLET (FP) PO PRN (22:06)
[2023-08-13] MEDS ORDERED: BENZOCAINE/MENTHOL (CHLORASEPTIC ) LOZENGE MM PRN (22:06)
[2023-08-13] MEDS ORDERED: IBUPROFEN 400 MG TABLET (FP) PO PRN (22:06)
[2023-08-13] MEDS ORDERED: MAG HYDROX/AL HYDROX/SIMETH 30 ML UNIT-DOSE CUP PO PRN (22:06)
[2023-08-13] MEDS: methaDONE HCL 10 MG TABLET (FOR DETOX USE ONLY) PO ONE (22:57)
[2023-08-13] MEDS: METHOCARBAMOL 500 MG TABLET PO PRN (22:57)
[2023-08-13] MEDS: hydrOXYzine PAMOATE 25 MG CAPSULE (FP) PO PRN (22:59)
[2023-08-13] MEDS: cloNIDine HCL 0.1 MG TABLET PO PRN (22:59)
[2023-08-14] MEDS: PRENATAL VITAMINS W/ FOLIC ACID TABLET (FP) PO SCH (09:10)
[2023-08-14 14:06] LABS: HEMATOCRIT 36.4 % (35.4-49); HEMOGLOBIN 11.8 GM/dL (11.7-16.9); MCH 27.5 pg (25.7-33.7); MCHC 32.4 g/dl (32.0-35.9); MEAN CELL VOLUME 85.2 fl (80-96); PLATELET COUNT 331 10^3/uL (134-434); RBC 4.28 M/mm3 (4.00-5.60); WHITE BLOOD COUNT 5.2 K/mm3 (4.0-10.0)
[2023-08-14 14:12] LABS: CHLORIDE 107 mmol/L (98-107); POTASSIUM 4.4 mmol/L (3.5-5.1); SODIUM 142 mmol/L (136-145)
[2023-08-14 14:15] LABS: CALCIUM 8.6 mg/dL (8.5-10.1)
[2023-08-14 14:16] LABS: ALBUMIN 3.2 g/dl (3.4-5.0); ANION GAP 1 mmol/L (4-13); BLOOD UREA NITROGEN 21.1 mg/dL (7-18); CO2 33 mmol/L (21-32); GLUCOSE,RANDOM 106 mg/dL (74-106)
[2023-08-14 14:19] LABS: SGOT/AST 52 U/L (15-37)
[2023-08-14 14:20] LABS: BILIRUBIN,TOTAL 0.4 mg/dL (0.2-1); TOT PROT 7.2 g/dl (6.4-8.2)
[2023-08-14 14:22] LABS: ALK PHOS 145 U/L (45-117)
[2023-08-14 14:23] LABS: CREATININE 0.9 mg/dL (0.55-1.3); SGPT/ALT 27 U/L (13-61)
[2023-08-14] MEDS: amLODIPine BESYLATE 5 MG TABLET (FP) PO SCH (17:29)
[2023-08-14] MEDS: THIAMINE 100 MG TABLET PO SCH (22:52)
[2023-08-14] MEDS: MELATONIN 5 MG TABLETS PO SCH (22:52)
[2023-08-15] MEDS: TRIMETHOBENZAMIDE HCL 200MG/2ML INJ IM ONE (08:57)
[2023-08-15] MEDS: methaDONE HCL 10 MG TABLET (FOR DETOX USE ONLY) PO ONE ×2 (09:36→17:47)
[2023-08-15] MEDS: ONDANSETRON *ODT* 4 MG TABLET SL PRN (09:41)
[2023-08-15] MEDS: amLODIPine BESYLATE 5 MG TABLET (FP) PO ONE (15:27)
[2023-08-15] MEDS: cloNIDine HCL 0.1 MG TABLET PO ONE (17:47)
[2023-08-16] MEDS: cloNIDine HCL 0.1 MG TABLET PO SCH (02:02)
[2023-08-16] MEDS: amLODIPine BESYLATE 10 MG TABLET (FP) PO SCH (09:30)
[2023-08-16 16:51] VITALS: BP 151/109; PULSE 86; RESP 18; TEMP 97.3
[2023-08-17] MEDS ORDERED: methaDONE HCL 10 MG TABLET (FOR DETOX USE ONLY) PO ONE (10:00)
== END 2023-08-16 17:05 | disposition left against medical advice (07) | DRG 770 ==
LOC: YASAS 20:09 → Y3N 22:15
PROVIDERS: ADMIT Allergy & Immunology; ATTEND Psychiatry & Neurology Pain Medicine
PROC: HZ2ZZZZ Detoxification Services for Substance Abuse Treatment (ICD-10-PCS; principal; 2023-08-13)
DX: F10.230 Alcohol dependence with withdrawal, uncomplicated (principal); F11.23 Opioid dependence with withdrawal; F16.20 Hallucinogen dependence, uncomplicated; F15.20 Other stimulant dependence, uncomplicated; F19.24 Other psychoactive substance dependence with psychoactive substance-induced mood disorder; F20.9 Schizophrenia, unspecified; I10 Essential (primary) hypertension; R76.11 Nonspecific reaction to tuberculin skin test without active tuberculosis; Z56.0 Unemployment, unspecified; Z59.00 Homelessness unspecified
CPT/HCPCS: 36415; 80053; 80305; 80307; 85027; 86780; 93005; 93010; Q0162

== ENCOUNTER 2023-08-15 20:11 | Emergency (ER) | payer OTHER ==
[2023-08-15 20:23] VITALS: TEMP 98.9; BMI 19.2
[2023-08-15] MEDS ORDERED: VALSARTAN 80 MG TABLET ONE (20:48)
[2023-08-15] MEDS: VALSARTAN 80 MG TABLET PO ONE (20:52)
[2023-08-15] MEDS ORDERED: methaDONE HCL 10 MG TABLET ONE (21:36)
[2023-08-15] MEDS: methaDONE HCL 10 MG TABLET PO ONE (21:38)
[2023-08-16 00:37] VITALS: BP 175/105; PULSE 76; RESP 20
== END 2023-08-16 00:37 | disposition home or self-care (01) ==
LOC: JER 20:11
DX: F20.9 Schizophrenia, unspecified (principal); F11.20 Opioid dependence, uncomplicated; I10 Essential (primary) hypertension
CPT/HCPCS: 93005; 93010; 99283-25